=== PATIENT | female | born 1975 | race Asian ===

== ENCOUNTER 2016-10-16 20:30 | Emergency (ER) | payer OTHER ==
[~2016-10-16] VITALS: Ht 162.6 cm; Wt 68.2 kg
[2016-10-16 23:11] VITALS: BP 129/80
== END 2016-10-16 23:18 | disposition home or self-care (01) ==
LOC: EMS 20:31
DX: M75.01 Adhesive capsulitis of right shoulder (principal)
CPT/HCPCS: 99284